=== PATIENT | female | born 1955 | race Caucasian/White ===

== ENCOUNTER 2017-09-06 13:59 | Inpatient (IN) | payer MEDICARE ==
[~2017-09-06] VITALS: Ht 167.6 cm; Wt 59.0 kg
[2017-09-06] MEDS ORDERED: LISI40TA4 PO (14:54)
[2017-09-06] MEDS ORDERED: HYDR200T PO (14:54)
[2017-09-06] MEDS ORDERED: CARB200T PO (14:54)
[2017-09-06] MEDS ORDERED: ACET1TAB12 PO (14:54)
[2017-09-06] MEDS ORDERED: [UNRECOGNIZED DRUG - CODE] PO (14:54)
[2017-09-06] MEDS ORDERED: LEVE1000 PO (14:54)
[2017-09-06] MEDS ORDERED: AMLO10TA2 PO (14:54)
[2017-09-06] MEDS ORDERED: VICODINE PO (14:54)
[2017-09-06] MEDS ORDERED: HYDR-4076 PO (14:54)
[2017-09-06] MEDS ORDERED: PIRO20CA PO (14:54)
--- NOTE | 2017-09-06 17:25 | NUR ---
DR OH AND BRAXTON KERN EXCHANGE CALLED WAITING FOR CALL BACK.
[2017-09-06 18:03] LABS: BASOPHILS % (AUTO) 0.1 % (0.0-2.0); HEMATOCRIT 42.6 % (31.2-41.9); HEMOGLOBIN 14.9 g/dL (10.9-14.3); LYMPHOCYTES # (AUTO) 0.4 K/uL (20.0-40.0); LYMPHOCYTES % (AUTO) 3.9 % (20.5-51.5); MEAN CORPUSCULAR HEMOGLOBIN 33.3 uug (24.7-32.8); MEAN CORPUSCULAR HGB CONC 35 g/dL (32.3-35.6); MEAN CORPUSCULAR VOLUME 95.3 fL (75.5-95.3); MONOCYTES # (AUTO) 0.5 K/uL (2.0-10.0); NEUTROPHILS # (AUTO) 10.4 K/uL (1.8-8.9); PLATELET COUNT (AUTO) 171 K/uL (179-408); RED BLOOD CELL COUNT(AUTO) 4.47 MIL/uL (3.63-4.92); WHITE BLOOD COUNT (AUTO) 11.3 K/uL (3.8-11.8)
--- NOTE | 2017-09-06 18:10 | NUR ---
DR BARROS SPOKE LAWANDA KERN DNP OK TO ADMIT.
[2017-09-06 18:11] LABS: CREATININE 1.1 mg/dL (0.6-1.3); POTASSIUM 3.9 mmol/L (3.5-5.1)
--- NOTE | 2017-09-06 18:37 | NUR ---
DR OH EXCHANGE CALLED WAITING FOR CALL BACK.
[2017-09-06] MEDS ORDERED: MORPHINE SULFATE 4 MG/1 ML DISP.SYRIN ONE (19:03)
[2017-09-06] MEDS ORDERED: ONDANSETRON 4 MG/2 ML VIAL ONE (19:03)
[2017-09-06] MEDS ORDERED: ONDANSETRON 4 MG/2 ML VIAL IV ONE (19:15)
[2017-09-06] MEDS ORDERED: MORPHINE SULFATE 4 MG/1 ML DISP.SYRIN IV ONE (19:15)
[2017-09-06 21:00] VITALS: BP 99/60
--- NOTE | 2017-09-06 21:00 | NUR ---
Pt. admitted to [facility], under care of Dr. Morataya Belongs List completed
[2017-09-06] MEDS ORDERED: IV D5 1/2 NS 1000 ML 1,000 ML IV PRN (21:22)
[2017-09-06] MEDS ORDERED: ONDANSETRON 4 MG/2 ML VIAL IV PRN (21:30)
[2017-09-06] MEDS ORDERED: Z GUARD REMEDY PASTE 57 GM TUBE TOP PRN (21:30)
[2017-09-06] MEDS ORDERED: ACETAMINOPHEN/CODEINE 300-30 MG TABLET PO PRN (21:30)
[2017-09-06] MEDS ORDERED: ACETAMINOPHEN 325 MG TABLET PO PRN (21:30)
--- NOTE | 2017-09-06 21:30 | NUR ---
NEW ADMIT FROM ER ADMITTED FOR LEFT FEMORAL NECK FRACTURE, 9TH THROUGH 12TH LEFT RIB POSTERIOR LATERAL FRACTURES. SHE'S ALERT AND ORIENTED X4 AND ABLE TO STATE HER NEEDS. C/O OF PAIN 10/10 TO LEFT HIP AND RIBS WILL MEDICATE PER MD ORDERS. ORIENTED PATIENT TO UNIT, CALL LIGHT LEFT WITHIN PATIENT'S REACH. WILL CONTINUE TO MONITOR PATIENT
[2017-09-06] MEDS ORDERED: MORPHINE SULFATE 2 MG/1 ML DISP.SYRIN ONE (22:26)
[2017-09-06] MEDS ORDERED: IV NS 1000 ML 1,000 ML IV ONE (22:30)
[2017-09-06] MEDS: MORPHINE SULFATE 2 MG/1 ML DISP.SYRIN IV PRN (22:32)
[2017-09-07 04:00] VITALS: BP 120/72
[2017-09-07] MEDS: MORPHINE SULFATE 2 MG/1 ML DISP.SYRIN IV PRN ×2 (06:12→08:48)
[2017-09-07] MEDS ORDERED: MORPHINE SULFATE 2 MG/1 ML DISP.SYRIN ONE (06:26)
[2017-09-07 06:54] LABS: BASOPHILS % (AUTO) 0.6 % (0.0-2.0); EOSINOPHILS % (AUTO) 0.2 % (0.0-7.0); HEMATOCRIT 40.1 % (31.2-41.9); HEMOGLOBIN 13.9 g/dL (10.9-14.3); LYMPHOCYTES # (AUTO) 0.5 K/uL (20.0-40.0); LYMPHOCYTES % (AUTO) 6.3 % (20.5-51.5); MEAN CORPUSCULAR HEMOGLOBIN 33.2 uug (24.7-32.8); MEAN CORPUSCULAR HGB CONC 35 g/dL (32.3-35.6); MEAN CORPUSCULAR VOLUME 95.9 fL (75.5-95.3); MONOCYTES # (AUTO) 0.6 K/uL (2.0-10.0); MONOCYTES % (AUTO) 8.3 % (0.0-11.0); NEUTROPHILS # (AUTO) 6.3 K/uL (1.8-8.9); NEUTROPHILS % (AUTO) 84.6 % (38.5-71.5); PLATELET COUNT (AUTO) 180 K/uL (179-408); RED BLOOD CELL COUNT(AUTO) 4.18 MIL/uL (3.63-4.92); WHITE BLOOD COUNT (AUTO) 7.4 K/uL (3.8-11.8)
--- NOTE | 2017-09-07 07:00 | NUR ---
RECEIVED PATIENT ON BED AWAKE, A AND O X 4. NO ACUTE DISTRESS NOTED. WITH IV ACCESS ON THE LEFT HAND #20 INTACT AND PATENT. NO S/S OF INFILTRATION NOTED. UNABLE TO AMBULATE DUE TO LEFT HIP FRACTURE. WITH FC INTACT AND DRAINING WELL. NO COMPLAINTS OF PAIN AND DISCOMFORT AT THIS TIME, WILL CONTINUE TO MONITOR. COMFORT MEASURES PROVIDED. CALL LIGHT WITHIN REACH.
[2017-09-07 07:52] LABS: BILIRUBIN,TOTAL 0.6 mg/dL (0.2-1.0); CREATININE 0.7 mg/dL (0.6-1.3); PHOSPHOROUS 3.5 mg/dL (2.5-4.9); POTASSIUM 4.2 mmol/L (3.5-5.1); TOTAL PROTEIN, SERUM 6.4 g/dL (6.4-8.2)
[2017-09-07] MEDS: LEVETIRACETAM 500 MG TABLET PO SCH ×2 (09:00→21:05)
[2017-09-07] MEDS ORDERED: METHYLDOPA 250 MG TABLET PO SCH (09:00)
[2017-09-07] MEDS: HYDROXYCHLOROQUINE SULFATE 200 MG TABLET PO SCH ×2 (09:00→17:13)
[2017-09-07] MEDS: CARBAMAZEPINE 200 MG TABLET PO SCH ×3 (09:00→17:13)
[2017-09-07] MEDS: LISINOPRIL 20 MG TABLET PO SCH (09:14)
[2017-09-07] MEDS: hydrALAZINE HCL 25 MG TABLET PO SCH ×3 (09:14→17:17)
[2017-09-07] MEDS: AMLODIPINE 10 MG TABLET PO SCH (09:14)
[2017-09-07 09:46] LABS: THYROID STIMULATING HORMONE 1.304 mIU/mL (0.358-3.740)
--- NOTE | 2017-09-07 10:00 | NUR ---
SEEN AND ASSESSED BY JAE LAWRENCEHAM BONER NURSE. NO APPARENT PROBLEM NOTED. ADVISED TO CHECK MOO SCORE IF FIRST STEP MATTRESS IS NEEDED, MOO SCORE IS 15, FIRST STEO MATTRESS NOT NEEDED. WILL CONTINUE TO MONITOR.
[2017-09-07 12:00] VITALS: BP 114/82
--- NOTE | 2017-09-07 12:30 | NUR ---
SEEN AND EXAMINED BY DR. OH, REGARDING HIP FRACTURE AND SURGERY. WITH ORDERS FOR NPO MIDNIGHT AND CONSENT FOR HIP REPLACEMENT SURGERY ON 09/08/17. ORDERS NOTED AND CARRIED OUT.
[2017-09-07] MEDS ORDERED: MORPHINE SULFATE 2 MG/1 ML DISP.SYRIN IV PRN (13:30)
[2017-09-07 15:08] VITALS: BP 94/60
--- NOTE | 2017-09-07 18:24 | NUR ---
changed dressing of the skin tear on the left upper arm, serosanguinous drainage noted. cleansed with NS, pat dry and covered with tegaderm dressing well tolerated
[2017-09-07 19:00] VITALS: BP 149/71
[2017-09-07] MEDS: MORPHINE SULFATE 4 MG/1 ML DISP.SYRIN IV PRN (20:15)
--- NOTE | 2017-09-07 23:00 | NUR ---
received to care, lying in bed, pleasant upon approach. PRN IV morphine sulfate given at 2014, for left hip pain 03/17. by 2114, she reported moderate relief, 12/15. as of 2299, she remains awake. call light in reach. consent signed for surgery in the AM. no distress noted.
[2017-09-08] MEDS: MORPHINE SULFATE 4 MG/1 ML DISP.SYRIN IV PRN ×4 (00:16→23:42)
--- NOTE | 2017-09-08 00:16 | NUR ---
PRN morphine iv given for left hip pain 03/17. pt was placed on NPO status. call light remains in reach. will continue to monitor closely.
--- NOTE | 2017-09-08 01:00 | NUR ---
appears to be asleep. no distress noted.
[2017-09-08 04:00] VITALS: BP 166/78
[2017-09-08 07:46] LABS: CARBON DIOXIDE 27 mmol/L (21-32); CHLORIDE 92 mmol/L (98-107); CREATININE 0.4 mg/dL (0.6-1.3); GLUCOSE 95 mg/dL (74-106); MAGNESIUM 1.6 mg/dL (1.8-2.4); PHOSPHOROUS 2.1 mg/dL (2.5-4.9); POTASSIUM 3.7 mmol/L (3.5-5.1); UREA NITROGEN, BLOOD 14 mg/dL (7-18); URIC ACID 1.5 mg/dL (2.6-6.0)
--- NOTE | 2017-09-08 08:00 | NUR ---
Awake, alert, oriented x 4, limited movement LLE. IVF infusing. NPO reinstructed. Complaining of pain on left rib area, /. IV site leaking. Reinserted to RFA, g 20. Morphine IV given
[2017-09-08] MEDS ORDERED: MAGNESIUM SULFATE/D5W 100 ML IV SCH (08:15)
[2017-09-08] MEDS: LISINOPRIL 20 MG TABLET PO SCH (09:00)
[2017-09-08] MEDS ORDERED: SODIUM PHOSPHATE MM 15 MM in IV DEXTROSE 5% 250 ML IV ONE (09:00)
[2017-09-08 09:21] LABS: THYROID STIMULATING HORMONE 2.433 mIU/mL (0.358-3.740)
[2017-09-08] MEDS: AMLODIPINE 10 MG TABLET PO SCH (09:29)
[2017-09-08] MEDS: hydrALAZINE HCL 25 MG TABLET PO SCH ×3 (09:29→17:00)
[2017-09-08] MEDS: LEVETIRACETAM 500 MG TABLET PO SCH ×2 (09:29→20:17)
[2017-09-08] MEDS: CARBAMAZEPINE 200 MG TABLET PO SCH ×3 (09:30→17:00)
[2017-09-08] MEDS: HYDROXYCHLOROQUINE SULFATE 200 MG TABLET PO SCH ×2 (09:32→17:00)
[2017-09-08 11:38] VITALS: BP 135/64
[2017-09-08] MEDS ORDERED: POLYMYXIN B SULFATE 500,000 UNITS, BACITRACIN 50,000 UNITS, NORMAL SALINE 20 ML MC ONE ×3 (13:45)
--- NOTE | 2017-09-08 14:45 | NUR ---
To OR by bed
[2017-09-08] MEDS ORDERED: MIDAZOLAM HCL 2 MG/2 ML VIAL ONE (15:38)
[2017-09-08] MEDS ORDERED: FENTANYL CITRATE 100 MCG/2 ML AMPUL ONE (15:38)
[2017-09-08] MEDS ORDERED: VANCOMYCIN 1000 MG VIAL ONE (15:43)
[2017-09-08] MEDS ORDERED: LIDOCAINE HCL 1% 20 ML VIAL MC ONE (15:50)
[2017-09-08] MEDS ORDERED: PROPOFOL 200 MG/20 ML BOTTLE IV ONE (15:50)
[2017-09-08] MEDS ORDERED: ONDANSETRON 4 MG/2 ML VIAL IV ONE (15:50)
[2017-09-08] MEDS ORDERED: METHOCARBAMOL 500 MG TABLET PO PRN (17:30)
[2017-09-08] MEDS ORDERED: HYDROMORPHONE 2 MG/1 ML DISP.SYRIN ONE (17:35)
[2017-09-08] MEDS ORDERED: hydrALAZINE HCL 20 MG/1 ML VIAL ONE (17:50)
[2017-09-08 18:48] LABS: ABG BASE EXCESS 0.7 mmol/L; ABG HCO3 24.4 mmol/L; ABG PCO2 36.2 mmHg (35.0-45.0); ABG PH 7.446 (7.350-7.450); ABG PO2 67.7 mmHg (75.0-100.0); ABG SITE LEFT RADIAL; ABG TOTAL HEMOGLOBIN 13.5 G/dL (12.0-16.0); COHb 1.8 % (0.5-1.5); MetHb 0.3 % (0.0-1.5); O2Hb 91.4 % (94.0-97.0)
--- NOTE | 2017-09-08 19:35 | NUR ---
PT RECEIVED FROM SURGERY, VIA Nonpareil. REPORT RECEIVED FROM ZORAIDA. ORIENTED TO ROOM. PT A/OX4. ABLE TO MAKE NEEDS KNOWN. V/S STABLE. IN NO ACUTE DISTRESS. PT C/O LEFT HIP PAIN 05/17 AT THIS TIME. TO ADMIN PAIN MEDICATION ORDERED. IV INTACT AND PATENT. ON 2LNC, TOLERATING WELL. AFEBRILE. BARAKAT INTACT AND PATENT, 50CC NOTED AT THIS TIME. URINE DARK YELLOW. DRESSING C/D/I WITH ABDUCTOR PILLOW IN PLACE. HOB ELEVATED. SAFETY MEASURES IMPLEMENTED. CALL LIGHT WITHIN REACH.
--- NOTE | 2017-09-08 19:45 | NUR ---
PT PLACED ON TELE MONITOR. 110-115 BPM SINUS TACHY AT THIS TIME. MD AWARE. WILL CONT TO MONITOR
[2017-09-08 20:00] VITALS: BP 149/80
[2017-09-08] MEDS: POTASSIUM CHLORIDE 20 MEQ in IV D5 1/2 NS 1000 ML 1,000 ML IV PRN (20:18)
[2017-09-08] MEDS: METHYLDOPA 250 MG TABLET PO SCH (20:24)
[2017-09-08] MEDS: HYDROCODONE/APAP 10-325 MG TABLET PO PRN (21:50)
[2017-09-08] MEDS: CEFAZOLIN 1 G in PREMIXED 1 EACH IV SCH (23:46)
[2017-09-08 23:52] VITALS: BP 134/76
[2017-09-09] MEDS: MORPHINE SULFATE 4 MG/1 ML DISP.SYRIN IV PRN ×3 (03:03→20:07)
--- NOTE | 2017-09-09 05:40 | NUR ---
END OF SHIFT NOTES. PT HAD DIFFICULTY SLEEPING THROUGHOUT SHIFT. IN STABLE CONDITION. IVF INFUSING. IV ABX INFUSED. PT C/O OF LEFT HIP PAIN AND CHRONIC BACK PAIN MANAGED. PAIN MED ADMINISTERED ORDERED. ON 2L NC, TOLERATING WELL. AFEBRILE. 95 SINUS RHYTHM WITH INSTANCES OF INVERTED T WAVE ON THE TELE MONITOR. BARAKAT INTACT AND PATENT. HOB REMAINS ELEVATED. ABDUCTOR PILLOW IN PLACE. ALL NEEDS ATTENDED. SAFETY MAINTAINED. CALL LIGHT WITHIN REACH.
[2017-09-09 06:43] LABS: BASOPHILS % (AUTO) 0.4 % (0.0-2.0); EOSINOPHILS % (AUTO) 0.1 % (0.0-7.0); HEMATOCRIT 34.2 % (31.2-41.9); HEMOGLOBIN 11.8 g/dL (10.9-14.3); LYMPHOCYTES # (AUTO) 0.6 K/uL (20.0-40.0); LYMPHOCYTES % (AUTO) 7.3 % (20.5-51.5); MEAN CORPUSCULAR HEMOGLOBIN 33.4 uug (24.7-32.8); MEAN CORPUSCULAR HGB CONC 35 g/dL (32.3-35.6); MEAN CORPUSCULAR VOLUME 96.6 fL (75.5-95.3); MONOCYTES % (AUTO) 11.7 % (0.0-11.0); NEUTROPHILS # (AUTO) 7.1 K/uL (1.8-8.9); NEUTROPHILS % (AUTO) 80.5 % (38.5-71.5); PLATELET COUNT (AUTO) 201 K/uL (179-408); RED BLOOD CELL COUNT(AUTO) 3.54 MIL/uL (3.63-4.92); WHITE BLOOD COUNT (AUTO) 8.8 K/uL (3.8-11.8)
[2017-09-09 06:51] LABS: BILIRUBIN,TOTAL 0.6 mg/dL (0.2-1.0); CREATININE 0.5 mg/dL (0.6-1.3); MAGNESIUM 1.6 mg/dL (1.8-2.4); POTASSIUM 4.2 mmol/L (3.5-5.1); TOTAL PROTEIN, SERUM 5.5 g/dL (6.4-8.2)
--- NOTE | 2017-09-09 07:05 | NUR ---
Received client in bed, awake, alert and oriented times 4. Client HOB is at high fowlers position. Bed at lowest position for safety and call light within reach for assistance. IV running at this time.
[2017-09-09] MEDS: CEFAZOLIN 1 G in PREMIXED 1 EACH IV SCH (07:42)
[2017-09-09] MEDS: CARBAMAZEPINE 200 MG TABLET PO SCH ×3 (08:12→17:03)
[2017-09-09] MEDS: LEVETIRACETAM 500 MG TABLET PO SCH ×2 (08:12→20:06)
[2017-09-09] MEDS: hydrALAZINE HCL 25 MG TABLET PO SCH ×3 (08:13→17:04)
[2017-09-09] MEDS: AMLODIPINE 10 MG TABLET PO SCH (08:13)
[2017-09-09] MEDS: LISINOPRIL 20 MG TABLET PO SCH (08:15)
[2017-09-09] MEDS: HYDROXYCHLOROQUINE SULFATE 200 MG TABLET PO SCH ×2 (08:21→17:03)
[2017-09-09] MEDS: METHYLDOPA 250 MG TABLET PO SCH ×2 (08:21→20:07)
--- NOTE | 2017-09-09 09:20 | NUR ---
PT session. Client c/o lower legs pain and back pain. Pain medication was given prior to PT session. Client was able to stand near bed.
[2017-09-09] MEDS: POTASSIUM CHLORIDE 20 MEQ in IV D5 1/2 NS 1000 ML 1,000 ML IV PRN (10:06)
--- NOTE | 2017-09-09 11:10 | NUR ---
Second PT session taking place with bed exercises
[2017-09-09 11:40] VITALS: BP 101/50
[2017-09-09] MEDS: MAGNESIUM SULFATE/D5W 100 ML IV SCH ×2 (13:04→16:48)
[2017-09-09 15:44] VITALS: BP 136/67
--- NOTE | 2017-09-09 17:06 | NUR ---
Pharmacy aware that client requests Lisinopril at night
[2017-09-09] MEDS: METHOCARBAMOL 500 MG TABLET PO PRN (17:29)
--- NOTE | 2017-09-09 17:30 | NUR ---
Client states she is in pain but refused pain medication stating she can wait. Educated the client on the importance of pain management.
[2017-09-09 19:00] VITALS: BP 120/68
--- NOTE | 2017-09-09 19:30 | NUR ---
Received patient laying in bed. HOB elevated. A&O x 4. Patient c/o generalized pain 03/17. IVF infusing. Noted left arm redness. Noted bishop draining well. 1 Pillow kept in between to avoid santos crossing legs. Safety initiated. Call light within reach. Will continue to monitor.
--- NOTE | 2017-09-09 19:41 | NUR ---
End of notes: client is alert and oriented times 4. Compliant with all nursing care and medication administration. Client HOB is at a high fowlers position and client is watching television with no apparent SOB, distress or discomfort. Bed at lowest position for safety and call light within reach for assistance
[2017-09-09] MEDS ORDERED: AMLODIPINE 10 MG TABLET PO SCH (21:00)
[2017-09-09] MEDS: HYDROCODONE/APAP 10-325 MG TABLET PO PRN (21:44)
[2017-09-09 21:47] VITALS: BP 116/67
[2017-09-10 04:00] VITALS: BP 113/62
[2017-09-10] MEDS: HYDROCODONE/APAP 10-325 MG TABLET PO PRN (05:01)
--- NOTE | 2017-09-10 05:51 | NUR ---
Patient refused to have the abductor pillow in between her legs stating "The Doctor said I didn't need it as long as I keep my legs straight". Discussed with charge nurse Kathi.
--- NOTE | 2017-09-10 05:54 | NUR ---
Patient slept intermittently t/o shift. C/o generalized pain, meds given, stated relief. Wound care provided on the left upper arm. Tolerated well. IVF infusing. Diggs draining clear and yellow urine. Safety and comfort measures maintained t/o shift. Vital signs stable. All meds given as ordered. All needs met.
[2017-09-10 06:32] LABS: BASOPHILS % (AUTO) 0.4 % (0.0-2.0); EOSINOPHILS # (AUTO) 0.1 K/uL (0.0-0.7); EOSINOPHILS % (AUTO) 1.2 % (0.0-7.0); LYMPHOCYTES # (AUTO) 0.5 K/uL (20.0-40.0); LYMPHOCYTES % (AUTO) 6.9 % (20.5-51.5); MEAN CORPUSCULAR HEMOGLOBIN 33.5 uug (24.7-32.8); MEAN CORPUSCULAR HGB CONC 35 g/dL (32.3-35.6); MONOCYTES # (AUTO) 0.8 K/uL (2.0-10.0); MONOCYTES % (AUTO) 10.9 % (0.0-11.0); NEUTROPHILS # (AUTO) 6.2 K/uL (1.8-8.9); NEUTROPHILS % (AUTO) 80.6 % (38.5-71.5); PLATELET COUNT (AUTO) 171 K/uL (179-408); RED BLOOD CELL COUNT(AUTO) 2.91 MIL/uL (3.63-4.92); WHITE BLOOD COUNT (AUTO) 7.8 K/uL (3.8-11.8)
[2017-09-10 06:47] LABS: CARBON DIOXIDE 27 mmol/L (21-32); CHLORIDE 89 mmol/L (98-107); CREATININE 0.4 mg/dL (0.6-1.3); GLUCOSE 109 mg/dL (74-106); MAGNESIUM 1.7 mg/dL (1.8-2.4); PHOSPHOROUS 2.5 mg/dL (2.5-4.9); POTASSIUM 4.2 mmol/L (3.5-5.1); UREA NITROGEN, BLOOD 10 mg/dL (7-18)
[2017-09-10 06:49] LABS: HEMOGLOBIN 9.8 g/dL (10.9-14.3)
--- NOTE | 2017-09-10 08:00 | NUR ---
Resident received in bed and refusing abduction pillow between legs. Resident reeducated states keeping her legs abducted at all times. No s/s of distress. No SOB noted. Bed locked and in lowest position. Call light within reach. Bed alarm on. Will continue to monitor.
[2017-09-10] MEDS: CARBAMAZEPINE 200 MG TABLET PO SCH ×3 (08:43→16:57)
[2017-09-10] MEDS: LEVETIRACETAM 500 MG TABLET PO SCH (08:47)
[2017-09-10] MEDS: hydrALAZINE HCL 25 MG TABLET PO SCH ×3 (08:51→16:56)
[2017-09-10] MEDS: LISINOPRIL 20 MG TABLET PO SCH (08:52)
[2017-09-10] MEDS: METHYLDOPA 250 MG TABLET PO SCH (08:54)
[2017-09-10] MEDS: HYDROXYCHLOROQUINE SULFATE 200 MG TABLET PO SCH ×2 (10:23→16:59)
[2017-09-10] MEDS: METHOCARBAMOL 500 MG TABLET PO PRN (10:23)
[2017-09-10] MEDS: POTASSIUM CHLORIDE 20 MEQ in IV D5 1/2 NS 1000 ML 1,000 ML IV PRN (10:24)
[2017-09-10 11:47] VITALS: BP 102/63
[2017-09-10] MEDS ORDERED: IV SODIUM CHLORIDE 3% 500 ML IV PRN (12:00)
[2017-09-10] MEDS: SODIUM CHLORIDE 1,000 MG TABLET PO SCH ×2 (12:34→16:57)
--- NOTE | 2017-09-10 13:45 | NUR ---
SEEN BY DR KERN WITH DC ORDER TO ARU
[2017-09-10] MEDS: MAGNESIUM SULFATE/D5W 100 ML IV SCH ×2 (15:36→16:47)
[2017-09-10 15:50] VITALS: BP 100/53
--- NOTE | 2017-09-10 16:00 | NUR ---
SEEN BY PT SEE NOTES
[2017-09-10 16:56] VITALS: BP 100/53
[2017-09-10] MEDS ORDERED: TEMAZEPAM 30 MG CAPSULE PO PRN (17:00)
[2017-09-10] MEDS ORDERED: Morphine Sulfate Inj IV (17:28)
[2017-09-10] MEDS ORDERED: OXYC20TA58 PO (17:28)
[2017-09-10] MEDS ORDERED: HYDR-548 PO (17:28)
--- NOTE | 2017-09-10 18:20 | NUR ---
TRANSFER TO [facility] ARU STABLE VIA BED. REPORT GIVEN TO ARU STAFF
== END 2017-09-10 18:30 | DRG 469 ==
LOC: ER 13:59 → MED 20:35 → TELE 09-08 20:47 → MED 09-09 18:40
PROVIDERS: ADMIT Nurse Practitioner Acute Care; ATTEND Nurse Practitioner Acute Care
PROC: 0SRS01Z Replacement of Left Hip Joint, Femoral Surface with Metal Synthetic Substitute, Open Approach (ICD-10-PCS; principal; 2017-09-08 15:50)
DX: S72.012A Unspecified intracapsular fracture of left femur, initial encounter for closed fracture (principal); I21.A1 Myocardial infarction type 2; S22.42XA Multiple fractures of ribs, left side, initial encounter for closed fracture; D89.89 Other specified disorders involving the immune mechanism, not elsewhere classified; E22.2 Syndrome of inappropriate secretion of antidiuretic hormone; D69.6 Thrombocytopenia, unspecified; G20 Parkinson's disease; E83.42 Hypomagnesemia; G40.909 Epilepsy, unspecified, not intractable, without status epilepticus; W19.XXXA Unspecified fall, initial encounter; Y92.89 Other specified places as the place of occurrence of the external cause; Z79.899 Other long term (current) drug therapy; T88.7XXA Unspecified adverse effect of drug or medicament, initial encounter; T42.1X5A Adverse effect of iminostilbenes, initial encounter; Y92.009 Unspecified place in unspecified non-institutional (private) residence as the place of occurrence of the external cause; M62.830 Muscle spasm of back; I11.9 Hypertensive heart disease without heart failure
CPT/HCPCS: 36415; 36600; 70030-TC; 71101; 73501; 73502; 73551; 82533; 83735; 84100; 84300; 84443; 84550; 85025; 85610; 93005; 93307; 97110; 97165; A4217; A4663; J0360; J0690; J1170; J2250; J2270; J2405; J3010; J3370; J3475; J3480; J3490; J7030; J7060

== ENCOUNTER 2017-09-10 19:10 | Inpatient (IN) | payer MEDICARE ==
[~2017-09-10] VITALS: Ht 167.6 cm; Wt 59.0 kg
[~2017-09-10 19:10] MED LIST: ACET1TAB12 PO; AMLO10TA2 PO; CARB200T PO; HYDR-4076 PO; HYDR-548 PO; HYDR200T PO; LEVE1000 PO; LISI40TA4 PO; Morphine Sulfate Inj IV; OXYC20TA58 PO; PIRO20CA PO; VICODINE PO; [UNRECOGNIZED DRUG - CODE] PO
[2017-09-10] MEDS ORDERED: Z GUARD REMEDY PASTE 57 GM TUBE TOP PRN (19:45)
[2017-09-10 20:59] VITALS: BP 124/63
[2017-09-10] MEDS ORDERED: HYDROCODONE/APAP 10-325 MG TABLET PO PRN (23:15)
[2017-09-10] MEDS ORDERED: OXYCODONE HCL 20 MG TAB.SR.12H PO ONE (23:30)
[2017-09-11] MEDS: CARBAMAZEPINE 200 MG TABLET PO SCH ×3 (08:43→16:32)
[2017-09-11] MEDS: hydrALAZINE HCL 25 MG TABLET PO SCH ×3 (08:43→16:33)
[2017-09-11] MEDS: OXYCODONE HCL 20 MG TAB.SR.12H PO SCH ×2 (08:43→20:57)
[2017-09-11] MEDS: LEVETIRACETAM 500 MG TABLET PO SCH ×2 (08:44→20:56)
[2017-09-11] MEDS: LISINOPRIL 20 MG TABLET PO SCH (08:44)
[2017-09-11] MEDS: AMLODIPINE 10 MG TABLET PO SCH (08:44)
[2017-09-11] MEDS: METHYLDOPA 250 MG TABLET PO SCH ×2 (08:45→20:59)
[2017-09-11] MEDS: HYDROXYCHLOROQUINE SULFATE 200 MG TABLET PO SCH ×2 (08:45→16:31)
[2017-09-11] MEDS: OXYCODONE/APAP 5-325 MG TABLET PO PRN (16:33)
[2017-09-11] MEDS: METHOCARBAMOL 500 MG TABLET PO PRN (16:39)
[2017-09-11] MEDS: ONDANSETRON 4 MG/2 ML VIAL IV PRN (17:58)
[2017-09-11 21:41] VITALS: BP 141/76
[2017-09-12 06:56] LABS: BASOPHILS % (AUTO) 0.6 % (0.0-2.0); EOSINOPHILS # (AUTO) 0.1 K/uL (0.0-0.7); EOSINOPHILS % (AUTO) 1.6 % (0.0-7.0); HEMATOCRIT 25.5 % (31.2-41.9); HEMOGLOBIN 9.2 g/dL (10.9-14.3); LYMPHOCYTES # (AUTO) 0.6 K/uL (20.0-40.0); LYMPHOCYTES % (AUTO) 11.7 % (20.5-51.5); MEAN CORPUSCULAR HGB CONC 36 g/dL (32.3-35.6); MEAN CORPUSCULAR VOLUME 94.5 fL (75.5-95.3); MONOCYTES # (AUTO) 0.7 K/uL (2.0-10.0); MONOCYTES % (AUTO) 13.3 % (0.0-11.0); NEUTROPHILS # (AUTO) 3.7 K/uL (1.8-8.9); NEUTROPHILS % (AUTO) 72.8 % (38.5-71.5); PLATELET COUNT (AUTO) 209 K/uL (179-408); RED BLOOD CELL COUNT(AUTO) 2.69 MIL/uL (3.63-4.92); WHITE BLOOD COUNT (AUTO) 5.1 K/uL (3.8-11.8)
[2017-09-12 07:05] VITALS: BP 154/75
[2017-09-12 07:12] LABS: CARBON DIOXIDE 28 mmol/L (21-32); CHLORIDE 88 mmol/L (98-107); CREATININE 0.4 mg/dL (0.6-1.3); GLUCOSE 88 mg/dL (74-106); MAGNESIUM 1.4 mg/dL (1.8-2.4); PHOSPHOROUS 3.3 mg/dL (2.5-4.9); POTASSIUM 4.5 mmol/L (3.5-5.1); UREA NITROGEN, BLOOD 9 mg/dL (7-18)
[2017-09-12] MEDS: hydrALAZINE HCL 25 MG TABLET PO SCH ×3 (08:58→17:00)
[2017-09-12] MEDS: LEVETIRACETAM 500 MG TABLET PO SCH ×2 (08:59→20:42)
[2017-09-12] MEDS: AMLODIPINE 10 MG TABLET PO SCH (08:59)
[2017-09-12] MEDS: CARBAMAZEPINE 200 MG TABLET PO SCH ×3 (09:00→17:33)
[2017-09-12] MEDS: OXYCODONE HCL 20 MG TAB.SR.12H PO SCH ×2 (09:00→20:43)
[2017-09-12] MEDS: LISINOPRIL 20 MG TABLET PO SCH (09:01)
[2017-09-12] MEDS: HYDROXYCHLOROQUINE SULFATE 200 MG TABLET PO SCH ×2 (09:29→17:33)
[2017-09-12] MEDS: METHYLDOPA 250 MG TABLET PO SCH ×2 (09:29→20:43)
[2017-09-12] MEDS: MAGNESIUM SULFATE/D5W 100 ML IV SCH ×4 (15:30→17:30)
[2017-09-12] MEDS: DEMECLOCYCLINE HCL 150 MG TABLET PO SCH ×2 (15:40→17:33)
[2017-09-12] MEDS: METHOCARBAMOL 500 MG TABLET PO PRN (20:54)
[2017-09-12 20:56] VITALS: BP 100/56
[2017-09-13 07:26] LABS: BASOPHILS % (AUTO) 0.4 % (0.0-2.0); EOSINOPHILS # (AUTO) 0.1 K/uL (0.0-0.7); EOSINOPHILS % (AUTO) 1.5 % (0.0-7.0); HEMATOCRIT 28.4 % (31.2-41.9); LYMPHOCYTES # (AUTO) 0.5 K/uL (20.0-40.0); LYMPHOCYTES % (AUTO) 9.4 % (20.5-51.5); MEAN CORPUSCULAR HEMOGLOBIN 33.5 uug (24.7-32.8); MEAN CORPUSCULAR HGB CONC 35 g/dL (32.3-35.6); MEAN CORPUSCULAR VOLUME 95.7 fL (75.5-95.3); MONOCYTES # (AUTO) 0.8 K/uL (2.0-10.0); MONOCYTES % (AUTO) 13.4 % (0.0-11.0); NEUTROPHILS # (AUTO) 4.3 K/uL (1.8-8.9); NEUTROPHILS % (AUTO) 75.3 % (38.5-71.5); PLATELET COUNT (AUTO) 262 K/uL (179-408); RED BLOOD CELL COUNT(AUTO) 2.97 MIL/uL (3.63-4.92); WHITE BLOOD COUNT (AUTO) 5.7 K/uL (3.8-11.8)
[2017-09-13 07:40] LABS: CARBON DIOXIDE 27 mmol/L (21-32); CREATININE 0.4 mg/dL (0.6-1.3); GLUCOSE 89 mg/dL (74-106); MAGNESIUM 1.7 mg/dL (1.8-2.4); PHOSPHOROUS 3.5 mg/dL (2.5-4.9); UREA NITROGEN, BLOOD 10 mg/dL (7-18)
[2017-09-13 07:44] LABS: CHLORIDE 86 mmol/L (98-107); POTASSIUM 4.3 mmol/L (3.5-5.1)
[2017-09-13 08:10] VITALS: BP 174/79
[2017-09-13] MEDS: CARBAMAZEPINE 200 MG TABLET PO SCH ×3 (08:18→18:22)
[2017-09-13] MEDS: OXYCODONE HCL 20 MG TAB.SR.12H PO SCH ×2 (08:18→21:33)
[2017-09-13] MEDS: DEMECLOCYCLINE HCL 150 MG TABLET PO SCH ×3 (08:19→18:22)
[2017-09-13] MEDS: AMLODIPINE 10 MG TABLET PO SCH (08:19)
[2017-09-13] MEDS: OXYCODONE/APAP 5-325 MG TABLET PO PRN (08:20)
[2017-09-13] MEDS: HYDROXYCHLOROQUINE SULFATE 200 MG TABLET PO SCH ×2 (08:20→18:22)
[2017-09-13] MEDS: hydrALAZINE HCL 25 MG TABLET PO SCH ×3 (08:21→18:23)
[2017-09-13] MEDS: METHYLDOPA 250 MG TABLET PO SCH ×2 (08:23→21:34)
[2017-09-13] MEDS: LISINOPRIL 20 MG TABLET PO SCH (08:26)
[2017-09-13] MEDS: LEVETIRACETAM 500 MG TABLET PO SCH ×2 (08:27→21:33)
[2017-09-13] MEDS ORDERED: DEMECLOCYCLINE HCL 150 MG TABLET PO SCH (09:00)
[2017-09-13] MEDS ORDERED: IV SODIUM CHLORIDE 3% 500 ML IV PRN (11:30)
[2017-09-13] MEDS: MORPHINE SULFATE 4 MG/1 ML DISP.SYRIN IV PRN ×2 (14:00→18:40)
[2017-09-13] MEDS: METHOCARBAMOL 500 MG TABLET PO PRN (14:00)
[2017-09-13] MEDS ORDERED: MAGNESIUM OXIDE 400 MG TABLET PO ONE (14:15)
[2017-09-13] MEDS ORDERED: IV SODIUM CHLORIDE 3% 500 ML IV SCH (14:30)
[2017-09-13 20:24] VITALS: BP 127/60
[2017-09-14] MEDS: OXYCODONE/APAP 5-325 MG TABLET PO PRN ×2 (01:46→16:51)
[2017-09-14 08:40] LABS: BASOPHILS # (AUTO) 0.1 K/uL (0.0-8.0); BASOPHILS % (AUTO) 1.2 % (0.0-2.0); EOSINOPHILS # (AUTO) 0.1 K/uL (0.0-0.7); EOSINOPHILS % (AUTO) 1.2 % (0.0-7.0); HEMATOCRIT 28.5 % (31.2-41.9); HEMOGLOBIN 9.8 g/dL (10.9-14.3); LYMPHOCYTES # (AUTO) 0.7 K/uL (20.0-40.0); LYMPHOCYTES % (AUTO) 14.7 % (20.5-51.5); MEAN CORPUSCULAR HEMOGLOBIN 32.8 uug (24.7-32.8); MEAN CORPUSCULAR HGB CONC 34 g/dL (32.3-35.6); MEAN CORPUSCULAR VOLUME 95.8 fL (75.5-95.3); MONOCYTES # (AUTO) 0.7 K/uL (2.0-10.0); MONOCYTES % (AUTO) 14.2 % (0.0-11.0); NEUTROPHILS # (AUTO) 3.4 K/uL (1.8-8.9); NEUTROPHILS % (AUTO) 68.7 % (38.5-71.5); PLATELET COUNT (AUTO) 311 K/uL (179-408); RED BLOOD CELL COUNT(AUTO) 2.98 MIL/uL (3.63-4.92); WHITE BLOOD COUNT (AUTO) 4.9 K/uL (3.8-11.8)
[2017-09-14 08:42] LABS: CREATININE 0.5 mg/dL (0.6-1.3); MAGNESIUM 1.7 mg/dL (1.8-2.4); PHOSPHOROUS 4.1 mg/dL (2.5-4.9); POTASSIUM 4.5 mmol/L (3.5-5.1)
[2017-09-14] MEDS: hydrALAZINE HCL 25 MG TABLET PO SCH ×3 (08:54→16:52)
[2017-09-14] MEDS: AMLODIPINE 10 MG TABLET PO SCH (08:55)
[2017-09-14] MEDS: LISINOPRIL 20 MG TABLET PO SCH (08:55)
[2017-09-14] MEDS: METHOCARBAMOL 500 MG TABLET PO PRN ×2 (08:55→12:31)
[2017-09-14] MEDS: DEMECLOCYCLINE HCL 150 MG TABLET PO SCH ×3 (08:56→16:50)
[2017-09-14] MEDS: CARBAMAZEPINE 200 MG TABLET PO SCH ×3 (08:56→16:51)
[2017-09-14] MEDS: OXYCODONE HCL 20 MG TAB.SR.12H PO SCH ×2 (08:56→21:03)
[2017-09-14] MEDS: HYDROXYCHLOROQUINE SULFATE 200 MG TABLET PO SCH ×2 (08:57→16:59)
[2017-09-14] MEDS: LEVETIRACETAM 500 MG TABLET PO SCH ×2 (08:57→21:04)
[2017-09-14] MEDS: METHYLDOPA 250 MG TABLET PO SCH ×2 (09:26→21:17)
[2017-09-14] MEDS ORDERED: MAGNESIUM OXIDE 400 MG TABLET PO ONE (10:30)
[2017-09-14 11:58] VITALS: BP 128/65
[2017-09-14 20:39] VITALS: BP 115/63
[2017-09-14] MEDS: ZOLPIDEM 5 MG TABLET PO SCH (21:02)
[2017-09-15 08:13] LABS: BASOPHILS % (AUTO) 0.8 % (0.0-2.0); EOSINOPHILS # (AUTO) 0.1 K/uL (0.0-0.7); EOSINOPHILS % (AUTO) 1.1 % (0.0-7.0); HEMATOCRIT 28.2 % (31.2-41.9); HEMOGLOBIN 9.7 g/dL (10.9-14.3); LYMPHOCYTES # (AUTO) 0.7 K/uL (20.0-40.0); MEAN CORPUSCULAR HEMOGLOBIN 33.1 uug (24.7-32.8); MEAN CORPUSCULAR HGB CONC 35 g/dL (32.3-35.6); MEAN CORPUSCULAR VOLUME 95.8 fL (75.5-95.3); MONOCYTES # (AUTO) 0.8 K/uL (2.0-10.0); MONOCYTES % (AUTO) 12.1 % (0.0-11.0); NEUTROPHILS # (AUTO) 4.7 K/uL (1.8-8.9); PLATELET COUNT (AUTO) 338 K/uL (179-408); RED BLOOD CELL COUNT(AUTO) 2.94 MIL/uL (3.63-4.92)
[2017-09-15 08:34] VITALS: BP 124/64
[2017-09-15 08:36] LABS: CARBON DIOXIDE 25 mmol/L (21-32); CHLORIDE 93 mmol/L (98-107); CREATININE 0.4 mg/dL (0.6-1.3); GLUCOSE 95 mg/dL (74-106); MAGNESIUM 1.5 mg/dL (1.8-2.4); PHOSPHOROUS 4.1 mg/dL (2.5-4.9); POTASSIUM 4.6 mmol/L (3.5-5.1); UREA NITROGEN, BLOOD 13 mg/dL (7-18)
[2017-09-15 08:38] LABS: WHITE BLOOD COUNT (AUTO) 6.3 K/uL (3.8-11.8)
[2017-09-15] MEDS: hydrALAZINE HCL 25 MG TABLET PO SCH ×3 (09:24→17:45)
[2017-09-15] MEDS: DEMECLOCYCLINE HCL 150 MG TABLET PO SCH ×3 (09:25→17:46)
[2017-09-15] MEDS: BACLOFEN 10 MG TABLET PO SCH ×3 (09:26→17:45)
[2017-09-15] MEDS: LEVETIRACETAM 500 MG TABLET PO SCH ×2 (09:26→20:32)
[2017-09-15] MEDS: AMLODIPINE 10 MG TABLET PO SCH (09:27)
[2017-09-15] MEDS: OXYCODONE HCL 20 MG TAB.SR.12H PO SCH ×2 (09:28→20:33)
[2017-09-15] MEDS: CARBAMAZEPINE 200 MG TABLET PO SCH ×3 (09:28→17:45)
[2017-09-15] MEDS: LISINOPRIL 20 MG TABLET PO SCH (09:28)
[2017-09-15] MEDS: HYDROXYCHLOROQUINE SULFATE 200 MG TABLET PO SCH ×2 (09:30→17:45)
[2017-09-15] MEDS: METHYLDOPA 250 MG TABLET PO SCH ×2 (09:35→20:32)
[2017-09-15] MEDS ORDERED: MAGNESIUM OXIDE 400 MG TABLET PO ONE (15:30)
[2017-09-15] MEDS: SODIUM CHLORIDE 1,000 MG TABLET PO SCH ×2 (15:49→17:45)
[2017-09-15 20:23] VITALS: BP 143/74
[2017-09-15] MEDS: ZOLPIDEM 5 MG TABLET PO SCH (20:32)
[2017-09-15] MEDS: METHOCARBAMOL 750 MG TABLET PO SCH (21:19)
[2017-09-15] MEDS: METHYL SALICYLATE/MENTHOL CREAM 28 GM TUBE TOP PRN (22:15)
[2017-09-15] MEDS: SENNOSIDES 1 TABLET PO PRN (22:15)
[2017-09-16] MEDS: METHOCARBAMOL 750 MG TABLET PO SCH ×3 (05:59→21:40)
[2017-09-16 06:58] LABS: BASOPHILS # (AUTO) 0.1 K/uL (0.0-8.0); EOSINOPHILS # (AUTO) 0.1 K/uL (0.0-0.7); EOSINOPHILS % (AUTO) 1.5 % (0.0-7.0); HEMATOCRIT 28.9 % (31.2-41.9); HEMOGLOBIN 10.1 g/dL (10.9-14.3); LYMPHOCYTES # (AUTO) 0.7 K/uL (20.0-40.0); LYMPHOCYTES % (AUTO) 11.2 % (20.5-51.5); MEAN CORPUSCULAR HEMOGLOBIN 33.4 uug (24.7-32.8); MEAN CORPUSCULAR HGB CONC 35 g/dL (32.3-35.6); MEAN CORPUSCULAR VOLUME 95.5 fL (75.5-95.3); MONOCYTES # (AUTO) 0.7 K/uL (2.0-10.0); MONOCYTES % (AUTO) 11.1 % (0.0-11.0); NEUTROPHILS # (AUTO) 4.4 K/uL (1.8-8.9); NEUTROPHILS % (AUTO) 75.2 % (38.5-71.5); PLATELET COUNT (AUTO) 341 K/uL (179-408); RED BLOOD CELL COUNT(AUTO) 3.02 MIL/uL (3.63-4.92); WHITE BLOOD COUNT (AUTO) 5.9 K/uL (3.8-11.8)
[2017-09-16 07:10] LABS: BILIRUBIN,TOTAL 0.3 mg/dL (0.2-1.0); CREATININE 0.5 mg/dL (0.6-1.3); MAGNESIUM 1.4 mg/dL (1.8-2.4); PHOSPHOROUS 4.1 mg/dL (2.5-4.9); POTASSIUM 4.4 mmol/L (3.5-5.1); TOTAL PROTEIN, SERUM 5.5 g/dL (6.4-8.2)
[2017-09-16 08:00] VITALS: BP 165/80
[2017-09-16] MEDS: DEMECLOCYCLINE HCL 150 MG TABLET PO SCH ×3 (08:40→16:51)
[2017-09-16] MEDS: LISINOPRIL 20 MG TABLET PO SCH (08:41)
[2017-09-16] MEDS: CARBAMAZEPINE 200 MG TABLET PO SCH ×3 (08:41→16:50)
[2017-09-16] MEDS: LEVETIRACETAM 500 MG TABLET PO SCH ×2 (08:41→20:35)
[2017-09-16] MEDS: SODIUM CHLORIDE 1,000 MG TABLET PO SCH ×3 (08:42→16:51)
[2017-09-16] MEDS: OXYCODONE HCL 20 MG TAB.SR.12H PO SCH ×2 (08:42→20:35)
[2017-09-16] MEDS: AMLODIPINE 10 MG TABLET PO SCH (08:43)
[2017-09-16] MEDS: HYDROXYCHLOROQUINE SULFATE 200 MG TABLET PO SCH ×2 (08:43→16:51)
[2017-09-16] MEDS: hydrALAZINE HCL 25 MG TABLET PO SCH ×3 (08:43→16:51)
[2017-09-16] MEDS: METHYLDOPA 250 MG TABLET PO SCH ×2 (08:44→21:40)
[2017-09-16] MEDS ORDERED: MAGNESIUM SULFATE/D5W 100 ML IV SCH (10:30)
[2017-09-16 11:52] LABS: *CREATININE,URINE 44.3 mg/dL (30-125)
[2017-09-16] MEDS: OXYCODONE/APAP 5-325 MG TABLET PO PRN (13:12)
[2017-09-16] MEDS: ZOLPIDEM 5 MG TABLET PO SCH (20:35)
[2017-09-16 20:42] VITALS: BP 108/64
[2017-09-17] MEDS: METHOCARBAMOL 750 MG TABLET PO SCH ×3 (06:26→21:10)
[2017-09-17] MEDS: METHYLDOPA 250 MG TABLET PO SCH ×2 (08:27→21:00)
[2017-09-17] MEDS: DEMECLOCYCLINE HCL 150 MG TABLET PO SCH ×3 (08:28→16:48)
[2017-09-17] MEDS: LEVETIRACETAM 500 MG TABLET PO SCH ×2 (08:28→21:12)
[2017-09-17] MEDS: AMLODIPINE 10 MG TABLET PO SCH (08:28)
[2017-09-17] MEDS: SODIUM CHLORIDE 1,000 MG TABLET PO SCH ×3 (08:28→16:48)
[2017-09-17] MEDS: CARBAMAZEPINE 200 MG TABLET PO SCH ×3 (08:28→16:48)
[2017-09-17] MEDS: HYDROXYCHLOROQUINE SULFATE 200 MG TABLET PO SCH ×2 (08:28→16:47)
[2017-09-17] MEDS: hydrALAZINE HCL 25 MG TABLET PO SCH ×3 (08:29→16:50)
[2017-09-17] MEDS: LISINOPRIL 20 MG TABLET PO SCH (08:29)
[2017-09-17] MEDS: OXYCODONE HCL 20 MG TAB.SR.12H PO SCH ×2 (08:29→21:12)
[2017-09-17 08:49] VITALS: BP 127/67
[2017-09-17] MEDS: ASPIRIN/ACETAMINOPHEN/CAFFEINE TABLET PO PRN (13:16)
[2017-09-17] MEDS: OXYCODONE/APAP 5-325 MG TABLET PO PRN (16:48)
[2017-09-17 20:40] VITALS: BP 109/49
[2017-09-17] MEDS: ZOLPIDEM 5 MG TABLET PO SCH (21:11)
[2017-09-18] MEDS ORDERED: ACETAMINOPHEN/CODEINE 300-60 MG TABLET PO ONE (01:00)
[2017-09-18] MEDS ORDERED: ACETAMINOPHEN/CODEINE 300-30 MG TABLET PO ONE (01:00)
[2017-09-18] MEDS: METHOCARBAMOL 750 MG TABLET PO SCH ×3 (06:35→21:06)
[2017-09-18] MEDS: LISINOPRIL 20 MG TABLET PO SCH (08:23)
[2017-09-18] MEDS: HYDROXYCHLOROQUINE SULFATE 200 MG TABLET PO SCH ×2 (08:23→16:27)
[2017-09-18] MEDS: DEMECLOCYCLINE HCL 150 MG TABLET PO SCH ×3 (08:24→16:27)
[2017-09-18] MEDS: OXYCODONE HCL 20 MG TAB.SR.12H PO SCH ×2 (08:24→20:18)
[2017-09-18] MEDS: SODIUM CHLORIDE 1,000 MG TABLET PO SCH ×3 (08:24→16:27)
[2017-09-18] MEDS: METHYLDOPA 250 MG TABLET PO SCH ×2 (08:24→20:19)
[2017-09-18] MEDS: CARBAMAZEPINE 200 MG TABLET PO SCH ×3 (08:25→16:27)
[2017-09-18] MEDS: LEVETIRACETAM 500 MG TABLET PO SCH ×2 (08:25→20:19)
[2017-09-18] MEDS: hydrALAZINE HCL 25 MG TABLET PO SCH ×3 (08:25→16:32)
[2017-09-18] MEDS: AMLODIPINE 10 MG TABLET PO SCH (08:25)
[2017-09-18] MEDS: SENNOSIDES 1 TABLET PO PRN (08:31)
[2017-09-18 09:58] VITALS: BP 125/63
[2017-09-18] MEDS ORDERED: ACETAMINOPHEN/CODEINE 300-30 MG TABLET PO PRN ×2 (12:00→13:15)
[2017-09-18] MEDS: ZOLPIDEM 5 MG TABLET PO SCH (20:17)
[2017-09-18 20:23] VITALS: BP 122/62
[2017-09-19] MEDS: METHOCARBAMOL 750 MG TABLET PO SCH ×3 (05:55→21:19)
[2017-09-19 07:14] LABS: BASOPHILS % (AUTO) 0.7 % (0.0-2.0); EOSINOPHILS # (AUTO) 0.1 K/uL (0.0-0.7); EOSINOPHILS % (AUTO) 1.4 % (0.0-7.0); HEMATOCRIT 26.9 % (31.2-41.9); HEMOGLOBIN 9.5 g/dL (10.9-14.3); LYMPHOCYTES # (AUTO) 0.7 K/uL (20.0-40.0); LYMPHOCYTES % (AUTO) 10.6 % (20.5-51.5); MEAN CORPUSCULAR HEMOGLOBIN 33.6 uug (24.7-32.8); MEAN CORPUSCULAR HGB CONC 35 g/dL (32.3-35.6); MEAN CORPUSCULAR VOLUME 95.2 fL (75.5-95.3); MONOCYTES # (AUTO) 0.8 K/uL (2.0-10.0); MONOCYTES % (AUTO) 11.3 % (0.0-11.0); NEUTROPHILS # (AUTO) 5.2 K/uL (1.8-8.9); PLATELET COUNT (AUTO) 373 K/uL (179-408); RED BLOOD CELL COUNT(AUTO) 2.83 MIL/uL (3.63-4.92); WHITE BLOOD COUNT (AUTO) 6.8 K/uL (3.8-11.8)
[2017-09-19 07:22] LABS: CARBON DIOXIDE 26 mmol/L (21-32); CHLORIDE 86 mmol/L (98-107); CREATININE 0.4 mg/dL (0.6-1.3); GLUCOSE 89 mg/dL (74-106); MAGNESIUM 1.4 mg/dL (1.8-2.4); UREA NITROGEN, BLOOD 8 mg/dL (7-18)
[2017-09-19 08:00] VITALS: BP 128/66
[2017-09-19] MEDS: CARBAMAZEPINE 200 MG TABLET PO SCH ×3 (09:18→16:14)
[2017-09-19] MEDS: DEMECLOCYCLINE HCL 150 MG TABLET PO SCH ×3 (09:19→18:22)
[2017-09-19] MEDS: SODIUM CHLORIDE 1,000 MG TABLET PO SCH ×3 (09:19→16:14)
[2017-09-19] MEDS: OXYCODONE HCL 20 MG TAB.SR.12H PO SCH ×2 (09:19→21:20)
[2017-09-19] MEDS: AMLODIPINE 10 MG TABLET PO SCH (09:20)
[2017-09-19] MEDS: LISINOPRIL 20 MG TABLET PO SCH (09:20)
[2017-09-19] MEDS: hydrALAZINE HCL 25 MG TABLET PO SCH ×2 (09:21→13:00)
[2017-09-19] MEDS: METHYLDOPA 250 MG TABLET PO SCH ×2 (09:21→21:24)
[2017-09-19] MEDS: HYDROXYCHLOROQUINE SULFATE 200 MG TABLET PO SCH ×2 (09:22→16:13)
[2017-09-19] MEDS: LEVETIRACETAM 500 MG TABLET PO SCH ×2 (10:02→21:20)
[2017-09-19] MEDS ORDERED: MAGNESIUM OXIDE 400 MG TABLET PO ONE (15:00)
[2017-09-19] MEDS: ASPIRIN/ACETAMINOPHEN/CAFFEINE TABLET PO PRN (16:13)
[2017-09-19] MEDS: METHOCARBAMOL 500 MG TABLET PO PRN (16:13)
[2017-09-19 20:00] VITALS: BP 162/71
[2017-09-19] MEDS: ONDANSETRON 4 MG/2 ML VIAL IV PRN (20:55)
[2017-09-19] MEDS: ZOLPIDEM 5 MG TABLET PO SCH (21:19)
[2017-09-20] MEDS: ACETAMINOPHEN/CODEINE 300-30 MG TABLET PO PRN ×2 (01:57→10:03)
[2017-09-20] MEDS: METHOCARBAMOL 750 MG TABLET PO SCH ×3 (06:20→21:00)
[2017-09-20 06:45] LABS: BASOPHILS % (AUTO) 0.5 % (0.0-2.0); EOSINOPHILS % (AUTO) 0.6 % (0.0-7.0); HEMATOCRIT 27.3 % (31.2-41.9); HEMOGLOBIN 9.7 g/dL (10.9-14.3); LYMPHOCYTES # (AUTO) 0.9 K/uL (20.0-40.0); LYMPHOCYTES % (AUTO) 11.4 % (20.5-51.5); MEAN CORPUSCULAR HEMOGLOBIN 33.6 uug (24.7-32.8); MEAN CORPUSCULAR HGB CONC 35 g/dL (32.3-35.6); MONOCYTES # (AUTO) 0.8 K/uL (2.0-10.0); MONOCYTES % (AUTO) 9.7 % (0.0-11.0); NEUTROPHILS # (AUTO) 6.2 K/uL (1.8-8.9); NEUTROPHILS % (AUTO) 77.8 % (38.5-71.5); PLATELET COUNT (AUTO) 404 K/uL (179-408); RED BLOOD CELL COUNT(AUTO) 2.88 MIL/uL (3.63-4.92)
[2017-09-20 06:56] LABS: CREATININE 0.5 mg/dL (0.6-1.3); POTASSIUM 4.2 mmol/L (3.5-5.1)
[2017-09-20 07:20] VITALS: BP 115/67
[2017-09-20] MEDS: LEVETIRACETAM 500 MG TABLET PO SCH ×2 (09:53→20:29)
[2017-09-20] MEDS: AMLODIPINE 10 MG TABLET PO SCH (09:53)
[2017-09-20] MEDS: LISINOPRIL 20 MG TABLET PO SCH (09:53)
[2017-09-20] MEDS: OXYCODONE HCL 20 MG TAB.SR.12H PO SCH ×3 (09:54→20:30)
[2017-09-20] MEDS: METHYLDOPA 250 MG TABLET PO SCH ×2 (09:54→20:30)
[2017-09-20] MEDS: DEMECLOCYCLINE HCL 150 MG TABLET PO SCH ×3 (09:55→17:54)
[2017-09-20] MEDS: HYDROXYCHLOROQUINE SULFATE 200 MG TABLET PO SCH ×2 (09:55→17:56)
[2017-09-20] MEDS: CARBAMAZEPINE 200 MG TABLET PO SCH ×3 (09:55→17:55)
[2017-09-20] MEDS: METHOCARBAMOL 500 MG TABLET PO PRN (12:03)
[2017-09-20] MEDS ORDERED: BACITRACIN/POLYMYXIN B OINT 15 GM TUBE TOP ONE (12:45)
[2017-09-20] MEDS: MAGNESIUM OXIDE 400 MG TABLET PO SCH (17:56)
[2017-09-20 20:27] VITALS: BP 113/58
[2017-09-20] MEDS: ZOLPIDEM 5 MG TABLET PO SCH (20:29)
[2017-09-20] MEDS: METHYL SALICYLATE/MENTHOL CREAM 28 GM TUBE TOP PRN (21:00)
[2017-09-21] MEDS: OXYCODONE/APAP 5-325 MG TABLET PO PRN (02:11)
[2017-09-21] MEDS ORDERED: ACETAMINOPHEN/CODEINE 300-30 MG TABLET PO PRN (02:15)
[2017-09-21] MEDS: METHOCARBAMOL 750 MG TABLET PO SCH ×3 (06:08→21:06)
[2017-09-21 07:04] LABS: BASOPHILS # (AUTO) 0.1 K/uL (0.0-8.0); BASOPHILS % (AUTO) 0.9 % (0.0-2.0); EOSINOPHILS # (AUTO) 0.1 K/uL (0.0-0.7); EOSINOPHILS % (AUTO) 1.3 % (0.0-7.0); HEMATOCRIT 28.8 % (31.2-41.9); HEMOGLOBIN 9.9 g/dL (10.9-14.3); LYMPHOCYTES # (AUTO) 0.7 K/uL (20.0-40.0); LYMPHOCYTES % (AUTO) 10.2 % (20.5-51.5); MEAN CORPUSCULAR HEMOGLOBIN 33.1 uug (24.7-32.8); MEAN CORPUSCULAR HGB CONC 35 g/dL (32.3-35.6); MEAN CORPUSCULAR VOLUME 96.1 fL (75.5-95.3); MONOCYTES # (AUTO) 0.9 K/uL (2.0-10.0); MONOCYTES % (AUTO) 12.3 % (0.0-11.0); NEUTROPHILS # (AUTO) 5.2 K/uL (1.8-8.9); NEUTROPHILS % (AUTO) 75.3 % (38.5-71.5); PLATELET COUNT (AUTO) 458 K/uL (179-408)
[2017-09-21 07:14] LABS: BILIRUBIN,TOTAL 0.3 mg/dL (0.2-1.0); CREATININE 0.5 mg/dL (0.6-1.3); MAGNESIUM 1.7 mg/dL (1.8-2.4); PHOSPHOROUS 3.9 mg/dL (2.5-4.9); POTASSIUM 4.4 mmol/L (3.5-5.1); TOTAL PROTEIN, SERUM 5.2 g/dL (6.4-8.2)
[2017-09-21 08:03] VITALS: BP 117/56
[2017-09-21] MEDS: MAGNESIUM OXIDE 400 MG TABLET PO SCH (08:07)
[2017-09-21] MEDS: DEMECLOCYCLINE HCL 150 MG TABLET PO SCH ×3 (08:07→17:40)
[2017-09-21] MEDS: LISINOPRIL 20 MG TABLET PO SCH (08:07)
[2017-09-21] MEDS: AMLODIPINE 10 MG TABLET PO SCH (08:08)
[2017-09-21] MEDS: LEVETIRACETAM 500 MG TABLET PO SCH ×2 (08:08→20:30)
[2017-09-21] MEDS: CARBAMAZEPINE 200 MG TABLET PO SCH ×3 (08:08→17:40)
[2017-09-21] MEDS: OXYCODONE HCL 20 MG TAB.SR.12H PO SCH (08:09)
[2017-09-21] MEDS: METHYLDOPA 250 MG TABLET PO SCH ×2 (08:23→20:30)
[2017-09-21] MEDS: HYDROXYCHLOROQUINE SULFATE 200 MG TABLET PO SCH ×2 (08:38→17:40)
[2017-09-21 15:30] LABS: *BILIRUBIN,URIN NEGATIVE (NEGATIVE); *BLOOD, URINE Trace-intact (NEGATIVE); *CLARITY,URINE CLOUDY (CLEAR); *KETONES,URINE NEGATIVE (NEGATIVE); *PROTEIN,URINE 1+ (NEGATIVE); *UROBILINOGEN,URINE 0.2 E.U./dl (NORMAL); LEUKOCYTE ESTERASE ,URINE 2+ (NEGATIVE); NITRITE, URINE POSITIVE (NEGATIVE); PH,URINE 6.5 (5.0-8.0); UGLUCOSE NEGATIVE (NEGATIVE)
[2017-09-21 15:48] LABS: *COLOR,URINE YELLOW (YELLOW)
[2017-09-21 15:53] LABS: BACTERIA,URINE MANY /HPF (NONE SEEN); SQUAMOUS EPITHELIAL CELL,UR MODERATE /HPF (NONE SEEN); WBC,URINE TNTC /HPF (0-3)
[2017-09-21] MEDS ORDERED: MAGNESIUM OXIDE 400 MG TABLET PO ONE (20:00)
[2017-09-21 20:19] VITALS: BP 112/54
[2017-09-21] MEDS: ZOLPIDEM 5 MG TABLET PO SCH (20:30)
[2017-09-21] MEDS: ACETAMINOPHEN/CODEINE 300-30 MG TABLET PO SCH ×2 (20:31→23:19)
[2017-09-22] MEDS: ACETAMINOPHEN/CODEINE 300-30 MG TABLET PO SCH ×3 (06:26→18:02)
[2017-09-22] MEDS: METHOCARBAMOL 750 MG TABLET PO SCH ×3 (06:26→21:02)
[2017-09-22] MEDS: MAGNESIUM OXIDE 400 MG TABLET PO SCH (08:39)
[2017-09-22] MEDS: DEMECLOCYCLINE HCL 150 MG TABLET PO SCH ×3 (08:39→16:06)
[2017-09-22] MEDS: LISINOPRIL 20 MG TABLET PO SCH (08:39)
[2017-09-22] MEDS: CARBAMAZEPINE 200 MG TABLET PO SCH ×3 (08:39→16:06)
[2017-09-22] MEDS: LEVETIRACETAM 500 MG TABLET PO SCH ×2 (08:40→21:02)
[2017-09-22] MEDS: METHYLDOPA 250 MG TABLET PO SCH ×2 (08:40→21:02)
[2017-09-22] MEDS: HYDROXYCHLOROQUINE SULFATE 200 MG TABLET PO SCH ×2 (08:40→16:06)
[2017-09-22] MEDS: AMLODIPINE 10 MG TABLET PO SCH (08:40)
[2017-09-22 09:45] VITALS: BP 143/71
[2017-09-22] MEDS: CADEXOMER IODINE 40 GM TUBE TOP SCH (13:13)
[2017-09-22 19:30] VITALS: BP 140/67
[2017-09-22] MEDS: ZOLPIDEM 5 MG TABLET PO SCH (21:02)
[2017-09-22] MEDS: METHYL SALICYLATE/MENTHOL CREAM 28 GM TUBE TOP PRN (21:02)
[2017-09-23] MEDS: ACETAMINOPHEN/CODEINE 300-30 MG TABLET PO SCH ×4 (00:23→16:48)
[2017-09-23] MEDS: METHOCARBAMOL 750 MG TABLET PO SCH ×3 (06:25→21:14)
[2017-09-23 07:13] LABS: BASOPHILS # (AUTO) 0.1 K/uL (0.0-8.0); EOSINOPHILS # (AUTO) 0.1 K/uL (0.0-0.7); EOSINOPHILS % (AUTO) 1.5 % (0.0-7.0); HEMATOCRIT 28.3 % (31.2-41.9); HEMOGLOBIN 9.8 g/dL (10.9-14.3); LYMPHOCYTES # (AUTO) 0.8 K/uL (20.0-40.0); LYMPHOCYTES % (AUTO) 12.1 % (20.5-51.5); MEAN CORPUSCULAR HEMOGLOBIN 33.3 uug (24.7-32.8); MEAN CORPUSCULAR HGB CONC 35 g/dL (32.3-35.6); MEAN CORPUSCULAR VOLUME 96.5 fL (75.5-95.3); MONOCYTES # (AUTO) 0.6 K/uL (2.0-10.0); MONOCYTES % (AUTO) 9.9 % (0.0-11.0); NEUTROPHILS # (AUTO) 4.9 K/uL (1.8-8.9); NEUTROPHILS % (AUTO) 75.5 % (38.5-71.5); PLATELET COUNT (AUTO) 531 K/uL (179-408); RED BLOOD CELL COUNT(AUTO) 2.94 MIL/uL (3.63-4.92); WHITE BLOOD COUNT (AUTO) 6.5 K/uL (3.8-11.8)
[2017-09-23 07:26] LABS: BILIRUBIN,TOTAL 0.3 mg/dL (0.2-1.0); CREATININE 0.5 mg/dL (0.6-1.3); MAGNESIUM 1.8 mg/dL (1.8-2.4); PHOSPHOROUS 4.3 mg/dL (2.5-4.9); POTASSIUM 4.8 mmol/L (3.5-5.1); TOTAL PROTEIN, SERUM 5.5 g/dL (6.4-8.2)
[2017-09-23] MEDS: HYDROXYCHLOROQUINE SULFATE 200 MG TABLET PO SCH ×2 (08:26→16:50)
[2017-09-23] MEDS: MAGNESIUM OXIDE 400 MG TABLET PO SCH (08:27)
[2017-09-23] MEDS: AMLODIPINE 10 MG TABLET PO SCH (08:27)
[2017-09-23] MEDS: CARBAMAZEPINE 200 MG TABLET PO SCH ×3 (08:27→16:48)
[2017-09-23] MEDS: DEMECLOCYCLINE HCL 150 MG TABLET PO SCH ×3 (08:27→16:48)
[2017-09-23] MEDS: LISINOPRIL 20 MG TABLET PO SCH (08:27)
[2017-09-23] MEDS: METHYLDOPA 250 MG TABLET PO SCH ×2 (08:28→20:42)
[2017-09-23] MEDS: CADEXOMER IODINE 40 GM TUBE TOP SCH (08:28)
[2017-09-23] MEDS: LEVETIRACETAM 500 MG TABLET PO SCH ×2 (09:00→20:41)
[2017-09-23 09:01] VITALS: BP 119/70
[2017-09-23] MEDS ORDERED: CEPHALEXIN MONOHYDRATE 500 MG CAPSULE PO SCH (12:00)
[2017-09-23] MEDS: LEVOFLOXACIN 500 MG/D5W 500 MG in PREMIXED 1 EACH IV SCH (16:48)
[2017-09-23] MEDS ORDERED: LORATADINE 10 MG TABLET PO SCH (17:00)
[2017-09-23 20:24] VITALS: BP 133/65
[2017-09-23] MEDS: ZOLPIDEM 5 MG TABLET PO SCH (20:42)
[2017-09-24] MEDS: ACETAMINOPHEN/CODEINE 300-30 MG TABLET PO SCH ×4 (00:24→18:08)
[2017-09-24] MEDS: METHOCARBAMOL 750 MG TABLET PO SCH ×3 (05:58→21:10)
[2017-09-24 08:00] VITALS: BP 121/74
[2017-09-24] MEDS: MAGNESIUM OXIDE 400 MG TABLET PO SCH (09:37)
[2017-09-24] MEDS: CARBAMAZEPINE 200 MG TABLET PO SCH ×3 (09:37→16:55)
[2017-09-24] MEDS: LISINOPRIL 20 MG TABLET PO SCH (09:38)
[2017-09-24] MEDS: LORATADINE 10 MG TABLET PO SCH (09:38)
[2017-09-24] MEDS: DEMECLOCYCLINE HCL 150 MG TABLET PO SCH ×3 (09:38→16:55)
[2017-09-24] MEDS: METHYLDOPA 250 MG TABLET PO SCH ×2 (09:39→21:09)
[2017-09-24] MEDS: AMLODIPINE 10 MG TABLET PO SCH (09:39)
[2017-09-24] MEDS: CADEXOMER IODINE 40 GM TUBE TOP SCH (09:40)
[2017-09-24] MEDS: HYDROXYCHLOROQUINE SULFATE 200 MG TABLET PO SCH ×2 (10:15→16:55)
[2017-09-24] MEDS: LEVETIRACETAM 500 MG TABLET PO SCH ×2 (11:14→21:09)
[2017-09-24] MEDS: LEVOFLOXACIN 500 MG/D5W 500 MG in PREMIXED 1 EACH IV SCH (16:29)
[2017-09-24 19:30] VITALS: BP 137/75
[2017-09-24] MEDS: ZOLPIDEM 5 MG TABLET PO SCH (21:13)
[2017-09-25] MEDS: METHOCARBAMOL 750 MG TABLET PO SCH ×3 (06:17→20:45)
[2017-09-25] MEDS: ACETAMINOPHEN/CODEINE 300-30 MG TABLET PO SCH ×5 (06:17→23:50)
[2017-09-25 07:36] LABS: BASOPHILS # (AUTO) 0.1 K/uL (0.0-8.0); BASOPHILS % (AUTO) 1.1 % (0.0-2.0); EOSINOPHILS % (AUTO) 0.8 % (0.0-7.0); HEMATOCRIT 29.1 % (31.2-41.9); HEMOGLOBIN 10.1 g/dL (10.9-14.3); LYMPHOCYTES # (AUTO) 0.6 K/uL (20.0-40.0); MEAN CORPUSCULAR HEMOGLOBIN 33.4 uug (24.7-32.8); MEAN CORPUSCULAR HGB CONC 35 g/dL (32.3-35.6); MEAN CORPUSCULAR VOLUME 95.9 fL (75.5-95.3); MONOCYTES # (AUTO) 0.7 K/uL (2.0-10.0); MONOCYTES % (AUTO) 10.6 % (0.0-11.0); NEUTROPHILS # (AUTO) 4.9 K/uL (1.8-8.9); NEUTROPHILS % (AUTO) 77.5 % (38.5-71.5); PLATELET COUNT (AUTO) 481 K/uL (179-408); RED BLOOD CELL COUNT(AUTO) 3.03 MIL/uL (3.63-4.92); WHITE BLOOD COUNT (AUTO) 6.3 K/uL (3.8-11.8)
[2017-09-25 07:54] LABS: BILIRUBIN,TOTAL 0.3 mg/dL (0.2-1.0); CREATININE 0.5 mg/dL (0.6-1.3); MAGNESIUM 1.7 mg/dL (1.8-2.4); PHOSPHOROUS 4.7 mg/dL (2.5-4.9); POTASSIUM 4.6 mmol/L (3.5-5.1); TOTAL PROTEIN, SERUM 5.6 g/dL (6.4-8.2)
[2017-09-25] MEDS: CARBAMAZEPINE 200 MG TABLET PO SCH ×3 (08:13→16:20)
[2017-09-25] MEDS: AMLODIPINE 10 MG TABLET PO SCH (08:14)
[2017-09-25] MEDS: LISINOPRIL 20 MG TABLET PO SCH (08:14)
[2017-09-25] MEDS: DEMECLOCYCLINE HCL 150 MG TABLET PO SCH ×3 (08:14→16:20)
[2017-09-25] MEDS: LORATADINE 10 MG TABLET PO SCH (08:14)
[2017-09-25] MEDS: MAGNESIUM OXIDE 400 MG TABLET PO SCH (08:15)
[2017-09-25] MEDS: LEVETIRACETAM 500 MG TABLET PO SCH ×2 (08:15→20:44)
[2017-09-25] MEDS: HYDROXYCHLOROQUINE SULFATE 200 MG TABLET PO SCH ×2 (08:16→16:20)
[2017-09-25] MEDS: METHYLDOPA 250 MG TABLET PO SCH ×2 (08:16→21:04)
[2017-09-25] MEDS: CADEXOMER IODINE 40 GM TUBE TOP SCH (08:30)
[2017-09-25 09:17] VITALS: BP 135/69
[2017-09-25] MEDS ORDERED: MAGNESIUM SULFATE/D5W 100 ML IV SCH (09:30)
[2017-09-25] MEDS: LEVOFLOXACIN 500 MG/D5W 500 MG in PREMIXED 1 EACH IV SCH (15:13)
[2017-09-25 19:30] VITALS: BP 141/66
[2017-09-25] MEDS: ZOLPIDEM 5 MG TABLET PO SCH (20:43)
[2017-09-26] MEDS: METHOCARBAMOL 500 MG TABLET PO PRN (04:19)
[2017-09-26] MEDS: METHOCARBAMOL 750 MG TABLET PO SCH ×2 (06:19→14:00)
[2017-09-26] MEDS: ACETAMINOPHEN/CODEINE 300-30 MG TABLET PO SCH ×2 (06:20→12:47)
[2017-09-26 07:00] VITALS: BP 124/73
[2017-09-26] MEDS: DEMECLOCYCLINE HCL 150 MG TABLET PO SCH ×2 (08:48→12:46)
[2017-09-26] MEDS: MAGNESIUM OXIDE 400 MG TABLET PO SCH (08:48)
[2017-09-26] MEDS: CARBAMAZEPINE 200 MG TABLET PO SCH ×2 (08:48→12:47)
[2017-09-26] MEDS: LISINOPRIL 20 MG TABLET PO SCH (08:50)
[2017-09-26] MEDS: LEVETIRACETAM 500 MG TABLET PO SCH (08:51)
[2017-09-26] MEDS: LORATADINE 10 MG TABLET PO SCH (08:51)
[2017-09-26] MEDS: AMLODIPINE 10 MG TABLET PO SCH (08:51)
[2017-09-26 08:53] VITALS: BP 124/73
[2017-09-26] MEDS: METHYLDOPA 250 MG TABLET PO SCH (08:53)
[2017-09-26] MEDS: HYDROXYCHLOROQUINE SULFATE 200 MG TABLET PO SCH (08:54)
[2017-09-26] MEDS: CADEXOMER IODINE 40 GM TUBE TOP SCH (08:56)
[2017-09-26] MEDS ORDERED: LEVOFLOXACIN 500 MG TABLET PO SCH (16:00)
== END 2017-09-26 15:30 | disposition home health service (06) | DRG 560 ==
PROVIDERS: ADMIT Physical Medicine & Rehabilitation Pain Medicine; ATTEND Physical Medicine & Rehabilitation Pain Medicine
DX: Z47.1 Aftercare following joint replacement surgery (principal); E22.2 Syndrome of inappropriate secretion of antidiuretic hormone; D89.89 Other specified disorders involving the immune mechanism, not elsewhere classified; D69.6 Thrombocytopenia, unspecified; G20 Parkinson's disease; E83.42 Hypomagnesemia; N39.0 Urinary tract infection, site not specified; S72.012D Unspecified intracapsular fracture of left femur, subsequent encounter for closed fracture with routine healing; S22.42XD Multiple fractures of ribs, left side, subsequent encounter for fracture with routine healing; W19.XXXD Unspecified fall, subsequent encounter; I10 Essential (primary) hypertension; G40.909 Epilepsy, unspecified, not intractable, without status epilepticus; G89.29 Other chronic pain; M54.5 Low back pain; M62.830 Muscle spasm of back; R26.9 Unspecified abnormalities of gait and mobility; R51 Headache; G47.00 Insomnia, unspecified; M51.16 Intervertebral disc disorders with radiculopathy, lumbar region; S41.112D Laceration without foreign body of left upper arm, subsequent encounter; T42.1X5D Adverse effect of iminostilbenes, subsequent encounter; Z87.891 Personal history of nicotine dependence; Z96.642 Presence of left artificial hip joint; S30.810A Abrasion of lower back and pelvis, initial encounter; X58.XXXA Exposure to other specified factors, initial encounter; Y93.9 Activity, unspecified; Y92.230 Patient room in hospital as the place of occurrence of the external cause
CPT/HCPCS: 36415; 83735; 84100; 84300; 85025; 87077; 87086; 92526; 92610; 97110; 97112; 97116; 97165; 97530; 97535; A4217; A4663; A9150; J1956; J2270; J2405; J3475; J3490; J7050